=== PATIENT | female | born 1985 | race Caucasian/White ===

== ENCOUNTER 2018-08-10 02:05 | Inpatient (IN) | payer OTHER ==
[2018-08-10 02:49] VITALS: BMI 37.3
[2018-08-10] MEDS ORDERED: Promethazine HCl 25 MG/ML VIAL IM PRN ×2 (02:52→06:39)
[2018-08-10] MEDS ORDERED: Bicitra 30 ML UDCUP PO SCH (02:52)
[2018-08-10] MEDS ORDERED: Ondansetron PF 4 MG/2 ML Vial IVP PRN ×3 (02:52→12:24)
[2018-08-10] MEDS: Lactated Ringer's 1,000 ML IV SCH ×4 (03:00→17:34)
[2018-08-10 03:24] LABS: Hemoglobin 13.4 g/dL (12.0-16.0); Mean Corpuscular HGB CONC 34.6 g/dL (32.0-36.0); Mean Corpuscular Hemoglobin 30.9 pg (27.0-31.0); Mean Corpuscular Volume 89.3 fL (78.0-98.0); Mean Platelet Volume 9.3 fL (7.4-10.4); Platelet Count 207 thou/uL (130-400); Red Blood Cell (RBC) Count 4.33 mill/uL (4.20-5.40); White Blood Cell (WBC) Count 12.5 thou/uL (4.8-10.8)
[2018-08-10 04:02] LABS: HBSAg Index 0.25 S/CO (0-0.99); Hep B Surf Ag Non-Reactive S/CO (NonReactive)
[2018-08-10 04:57] LABS: Syphilis Antibody Nonreactive (Nonreactive); Syphilis Antibody Index 0.05 S/CO (<1.00 Non-Reactive)
[2018-08-10] MEDS ORDERED: HYDROmorphone 2 MG/ML VIAL SLOW IVP PRN (06:39)
[2018-08-10] MEDS ORDERED: Promethazine HCl 25 MG SUPP PR PRN (06:39)
[2018-08-10] MEDS ORDERED: L&D-Morphine 4 MG/ML VIAL SLOW IVP PRN (06:39)
[2018-08-10] MEDS ORDERED: Naloxone HCl 0.4 mg/ml Vial IVP PRN ×2 (06:39)
[2018-08-10] MEDS ORDERED: Ondansetron HCl/PF 4 MG/2 ML Vial IVP PRN (06:39)
[2018-08-10] MEDS ORDERED: Meperidine HCl/PF 25 MG/ML VIAL SLOW IVP PRN (06:39)
[2018-08-10] MEDS ORDERED: Naloxone HCl 0.4 mg/ml Vial IV PRN (06:39)
[2018-08-10] MEDS ORDERED: Eucerin (Mineral Oil/Petrolatum,White) 30 gm Jar TOP PRN (06:39)
[2018-08-10] MEDS ORDERED: diphenhydrAMINE 50 MG/ML VIAL IVP PRN (06:39)
[2018-08-10] MEDS ORDERED: Communication Order-Pharmacy FS SCH (06:45)
[2018-08-10] MEDS ORDERED: Ketorolac Tromethamine 30 MG/ML VIAL IVP SCH (06:45)
[2018-08-10] MEDS ORDERED: Oxytocin 10 UNITS/ML VIAL ONE (07:19)
[2018-08-10] MEDS ORDERED: MORPHINE 5 MG/10 ML PF VIAL ONE (07:20)
[2018-08-10] MEDS ORDERED: PHENYLEPHRINE-NS 100 MCG/ML 10 ML SYRINGE ONE ×2 (07:20→14:50)
[2018-08-10] MEDS ORDERED: Docusate 100 MG CAP PO PRN (09:00)
[2018-08-10] MEDS ORDERED: Ketorolac Tromethamine 30 MG/ML VIAL ONE (09:45)
[2018-08-10] MEDS: Ketorolac Tromethamine 30 MG/ML VIAL IVP PRN ×3 (09:48→23:42)
[2018-08-10] MEDS ORDERED: NS / Oxytocin 40 units/1000ml 1,000 ML IV SCH ×2 (10:00→12:24)
[2018-08-10] MEDS ORDERED: Ondansetron PF 4 MG/2 ML Vial ONE (11:14)
[2018-08-10] MEDS ORDERED: Meperidine HCl/PF 25 MG/ML VIAL ONE (11:17)
[2018-08-10] MEDS ORDERED: Adacel (T-DAP) 0.5 ML SYRINGE IM ONE (12:24)
[2018-08-10] MEDS ORDERED: Acetaminophen 325 MG TAB PO PRN (12:24)
[2018-08-10] MEDS ORDERED: Lanolin Ointment 7 GM TUBE TOP PRN (12:24)
--- NOTE | 2018-08-10 12:36 | OP ---
DATE OF PROCEDURE: 08/10/2018 RESIDENT SURGEON: Karishma Rubio DO RUBBER TRIMMER SURGEON: Chanell Adams MD PREOPERATIVE DIAGNOSES: 1. Term intrauterine at 39 weeks. 2. Prior section x2. POSTOPERATIVE DIAGNOSES: 1. Term intrauterine at 39 weeks. 2. Prior section x2. PROCEDURE PERFORMED: Repeat low-transverse . ANESTHESIA: Spinal catheterization. FINDINGS: 1. Minimal scarring and adhesions secondary to previous adhesion prevention measures. 2. Vigorous female 7 pounds and 10 ounces, Apgars 8 and 9. 3. Normal uterus, tubes, and ovaries. No pathology identified. SPECIMENS REMOVED: Cord blood. ESTIMATED BLOOD LOSS: 500 mL. DESCRIPTION OF PROCEDURE: After thorough consent and counseling, Mrs. Mcdonough was taken operating room and adequate level of anesthesia was obtained via spinal catheterization. The patient was prepped and draped in the usual sterile fashion for abdominal surgery. A Santillan was placed in the bladder, which was noted to be draining clear urine. Attention was then turned to performing the repeat low-transverse section. A Pfannenstiel incision was made and the old scar was excised. The incision was carried sharply to the fascia, which was also sharply incised. The midline was identified and the rectus muscles were retracted laterally. The abdominal peritoneal cavity was entered with the usual safeguard carried out. A retractor was placed and a bladder flap was created on the vesicouterine peritoneum. A bladder blade was then placed. A low-transverse incision was made on the well-developed lower uterine segment. Upon entering the amniotic sac, a scant amount of clear amniotic fluid was visualized. The head was delivered and baby was bulb suctioned on the abdomen. Shoulders and body were then delivered in an atraumatic fashion. At delivery, terminal meconium was appreciated. The cord was doubly clamped and cut. The infant was handed to the pediatric team in attendance for the delivery. The infant was a vigorous viable female weighing 7 pounds and 10 ounces with Apgars of 8 and 9 obtained at one and five minutes respectively. Cord blood was obtained. The placenta was manually removed from the uterus. The uterus was exteriorized and good tone was noted. The uterine cavity was cleared of any remaining clot and fluid. The low-transverse incision was closed with a running locking ligature of #1 chromic. Several additional [id number] ligatures of both #1 chromic and 0 Vicryl suture were placed to facilitate strength and hemostasis. The posterior cul-de-sac and gutters were cleared of clot and fluid. The Seprafilm was applied to the low-transverse incision and to the anterior aspect of the uterus for adhesion prevention. The uterus, fallopian tubes, and ovaries were inspected and noted to be normal. No pathology was identified. The uterus was returned to the abdomen. Lap, sponge, and needle counts were correct. The peritoneum was then closed with a running ligature of 2-0 Vicryl suture. The rectus muscles were reapproximated in the midline with interrupted ligatures of both 2-0 Vicryl and 0 Vicryl suture. The fascia was then closed with 2 ligatures of 0 Vicryl suture, which were tied in the midline. Good fascial integrity was appreciated. The incision was irrigated with copious amount of warm normal saline. Good hemostasis was obtained with Bovie cauterization. The subcutaneous tissues were closed with interrupted ligatures of 2-0 plain. The skin was closed with subcuticular stitch of 4-0 Monocryl and dressed with Dermabond. A pressure dressing and ice packs were subsequently placed. Lap, sponge, and needle counts were correct x3. Estimated blood loss during the surgical procedure was approximately 500 mL. QBL pending. The patient was taken to the recovery room in good condition. Immediately following surgery, the patient and family were made aware of the surgical procedure and operative findings. Questions were answered to their satisfaction. Mother and baby were doing well postoperatively. The patient and her were appreciative of the care rendered here at [facility] this morning. Job ID: [id number]
[2018-08-10] MEDS: Ferrous Sulfate 325 MG TAB PO SCH ×2 (14:44→21:01)
[2018-08-10] MEDS: Docusate Calcium (SURFAK) 240 MG CAP PO SCH ×2 (14:44→21:01)
[2018-08-10] MEDS: Prenatal Vitamin 1 TAB PO SCH (14:44)
[2018-08-10] MEDS ORDERED: HYDROcodone/Acetaminophen 5/325 mg Tablet PO PRN ×2 (18:45)
[2018-08-11] MEDS: Ketorolac Tromethamine 30 MG/ML VIAL IVP PRN (05:30)
[2018-08-11] MEDS ORDERED: Sodium Chloride 0.9% 10 ML ONE (05:32)
[2018-08-11 06:52] LABS: Hemoglobin 10.8 g/dL (12.0-16.0); Mean Corpuscular HGB CONC 33.9 g/dL (32.0-36.0); Mean Corpuscular Hemoglobin 30.8 pg (27.0-31.0); Mean Platelet Volume 8.7 fL (7.4-10.4); Platelet Count 149 thou/uL (130-400); Red Blood Cell (RBC) Count 3.49 mill/uL (4.20-5.40); White Blood Cell (WBC) Count 10.9 thou/uL (4.8-10.8)
[2018-08-11] MEDS: traMADol HCl 50 MG TAB PO PRN ×5 (08:38→21:40)
[2018-08-11] MEDS: Prenatal Vitamin 1 TAB PO SCH (08:39)
[2018-08-11] MEDS: Docusate Calcium (SURFAK) 240 MG CAP PO SCH ×2 (08:39→20:06)
[2018-08-11] MEDS ORDERED: Thyroid 60 MG TAB PO SCH (09:00)
[2018-08-11] MEDS: Ferrous Sulfate 325 MG TAB PO SCH (10:12)
[2018-08-11] MEDS ORDERED: Thyroid 30 MG TAB PO SCH (13:30)
[2018-08-11] MEDS: Ibuprofen 800 MG TAB PO SCH ×2 (14:38→20:06)
[2018-08-11] MEDS: Simethicone Chewable 80 MG TAB PO PRN ×2 (14:39→21:41)
[2018-08-12] MEDS: Ferrous Sulfate 325 MG TAB PO SCH ×2 (03:57→09:13)
[2018-08-12] MEDS: traMADol HCl 50 MG TAB PO PRN ×2 (03:59→11:41)
[2018-08-12] MEDS: Ibuprofen 800 MG TAB PO SCH (04:03)
[2018-08-12 07:47] VITALS: BP 120/67; TEMP 98.2
[2018-08-12] MEDS ORDERED: Thyroid 30 MG TAB PO SCH (09:00)
[2018-08-12] MEDS: Docusate Calcium (SURFAK) 240 MG CAP PO SCH (09:13)
[2018-08-12] MEDS: Prenatal Vitamin 1 TAB PO SCH (09:13)
== END 2018-08-12 13:50 | disposition home or self-care (01) | DRG 788 ==
LOC: L&D 02:05 → 3SW 11:36
PROVIDERS: ADMIT Obstetrics & Gynecology; ATTEND Obstetrics & Gynecology
PROC: 10D00Z1 Extraction of Products of Conception, Low, Open Approach (ICD-10-PCS; principal; 2018-08-10)
PROC: 3E0P05Z Introduction of Adhesion Barrier into Female Reproductive, Open Approach (ICD-10-PCS; 2018-08-10)
DX: O34.211 Maternal care for low transverse scar from previous cesarean delivery (principal); O16.4 Unspecified maternal hypertension, complicating childbirth; O99.62 Diseases of the digestive system complicating childbirth; K21.9 Gastro-esophageal reflux disease without esophagitis; O99.344 Other mental disorders complicating childbirth; Z3A.39 39 weeks gestation of pregnancy; Z37.0 Single live birth; F32.9 Major depressive disorder, single episode, unspecified; F41.9 Anxiety disorder, unspecified; O99.284 Endocrine, nutritional and metabolic diseases complicating childbirth; E03.9 Hypothyroidism, unspecified; O77.0 Labor and delivery complicated by meconium in amniotic fluid; O99.89 Other specified diseases and conditions complicating pregnancy, childbirth and the puerperium; N73.6 Female pelvic peritoneal adhesions (postinfective)
CPT/HCPCS: 36415; 51702; 85027; 86780; 86850; 86900; 86901; 87340; J1885; J2175; J2270; J2310; J2405; J2590